=== PATIENT | male | born 1930 | race Caucasian/White ===

== ENCOUNTER 2017-07-29 03:45 | Inpatient (IN) | payer MEDICARE ==
[2017-07-29] VITALS (29 sets, daily range): BP systolic 115–141; BP diastolic 49–79; PULSE 62–144; RESP 15–31; TEMP 97.5–99.1; O2SAT 91–100
[~2017-07-29] VITALS: Ht 175.3 cm; Wt 84.3 kg
--- NOTE | 2017-07-29 03:52 | PD ---
HPI Chief Complaint: shortness of breath Time Seen by Provider: 03:48 Travel History International Travel<30 days: No Contact w/Intl Traveler<30days: No Traveled to known affect area: No History of Present Illness HPI 86-year-old male presents to the emergency department by EMS transport [facility] for complaint of shortness of breath. He should is recently transferred there reportedly 4 days ago from [facility] after hospitalization for pneumonia sepsis GERD hypertension syncope atrial fibrillation, dyslipidemia, BPH, COPD, CVA, non- Hodgkin's lymphoma laryngeal neoplasm weakness anxiety kidney failure discharged on BiPAP. Patient reportedly at [facility] was not tolerating BiPAP staff removed the IPAP machine and reportedly O2 saturations decreased to 70%. Patient is placed on 15 L per minute nonrebreather mask EMS was called and upon their arrival O2 saturations are 96% they tapered the supplemental oxygen on nonrebreather to 4 L/m nasal cannula O2 saturations reportedly remained 100% and patient was transferred to the emergency room. PFSH Past Medical History Narrative Medical pneumonia, sepsis, GERD, hypertension, syncope, atrial fibrillation, dyslipidemia, BPH, COPD, sleep apnea w/ BiPAP, CVA, CAD, CHF EF 25-30%, non- Hodgkin's lymphoma, laryngeal neoplasm, anxiety, chronic kidney disease, C Diff , mrsa,laryngeal biopsy, AAA, cardiac stent x 1 repair; no tobacco; nursing notes reviewed (PCP Gilma, Pulm: Dr Schafer/Matthew, Card: Dr Joe, Neph: Dr Ty ) Social History Tobacco Use: No Allergies-Medications (Allergen,Severity, Reaction): Coded Allergies: Iodinated Contrast- Oral and IV Dye (Verified Allergy, Unknown, 07/29/17) furosemide (Verified Allergy, Unknown, 07/29/17) hydrocodone (Verified Allergy, Unknown, 07/29/17) Reported Meds & Prescriptions Reported Meds & Active Scripts Active Reported Lunesta (Eszopiclone) 2 Mg Tab 3 Mg PO HS PRN Docusate Sodium 100 Mg Cap 100 Mg PO BID Diazepam 5 Mg Tab 5 Mg PO QID PRN Acetaminophen-Codeine 300-15 mg Tab 1 Tab PO Q6H PRN Questran (Cholestyramine) 4 Gm/Dose Powd 4 Gm PO QID 1 level scoopful of powder contains 4 grams of cholestyramine. Albuterol Neb (Albuterol Sulfate) 2.5 Mg/3 Ml Neb 2.5 Mg NEB QID NEB Pantoprazole (Pantoprazole Sodium) 40 Mg Tab 40 Mg PO BID Metoprolol Tartrate 25 Mg Tab 25 Mg PO BID Hydralazine HCl 25 Mg Tablet 50 Mg PO BID Ferrous Sulfate 325 Mg (65 Mg Iron) Tablet 325 Mg PO BIDPC Doxycycline Hyclate 100 Mg Cap 100 Mg PO BID Probiotic (Saccharomyces Boulardii) 250 Mg Cap 250 Mg PO BID Cetirizine (Cetirizine HCl) 10 Mg Tab 10 Mg PO BID Bumetanide 1 Mg Tab 1 Mg PO BID Symbicort Inh (Budesonide/Formoterol Fumarate) 160-4.5 Mcg/Act Aero 2 Puff INH Q12HR Tamsulosin (Tamsulosin HCl) 0.4 Mg Cap 0.4 Mg PO HS Simvastatin 20 Mg Tab 20 Mg PO HS Medrol (Methylprednisolone) 4 Mg Tab 4 Mg PO DAILY Magnesium Oxide 500 Mg Tab 500 Mg PO DAILY Losartan (Losartan Potassium) 25 Mg Tab 12.5 Mg PO DAILY Finasteride 5 Mg Tab 5 Mg PO DAILY Do not crush. Aspirin EC (Aspirin) 81 Mg Tabdr 81 Mg PO DAILY Narrative Medication Daily aspirin, finasteride, losartan, Medrol taper, simvastatin, Flomax, Bumex , cetirizine, doxycycline (07/24-07/29) iron sulfate, hydralazine, metoprolol, pantoprazole, oxygen 4 L/m nasal cannula Review of Systems Except as stated in HPI: all other systems reviewed are Neg General / Constitutional: No: Fever HENT: No: Congestion Cardiovascular: No: Chest Pain or Discomfort Respiratory: Positive: Shortness of Breath Gastrointestinal: No: Vomiting, Abdominal Pain Genitourinary: No: Dysuria, Flank Pain Musculoskeletal: No: Pain Skin: No Rash Neurologic: Positive: Weakness Psychiatric: No: Anxiety Hematologic/Lymphatic: No: Lymph Node Enlargement Physical Exam Narrative GENERAL: Well-developed well-nourished male in no acute distress mild respiratory distress with nonrebreather mask in place SKIN: Warm and dry. HEAD: Normocephalic. EYES: No scleral icterus. No injection or drainage. NECK: Supple, trachea midline. No JVD or lymphadenopathy. CARDIOVASCULAR: Regular rate and rhythm without murmurs, gallops, or rubs. RESPIRATORY: Breath sounds equal markedly diminished bilaterally. No accessory muscle use. GASTROINTESTINAL: Abdomen soft, non-tender, nondistended. MUSCULOSKELETAL: No cyanosis, or edema. BACK: Nontender without obvious deformity. No CVA tenderness. Data Data Last Documented VS Vital Signs Date Time Temp Pulse Resp B/P (MAP) Pulse Ox O2 Delivery O2 Flow Rate FiO2 07/29/17 05:15 94 40 07/29/17 05:01 88 18 116/59 (78) Nasal Cannula 3.00 07/29/17 04:08 99.1 Orders Orders Complete Blood Count With Diff (07/29/17 03:48) Comprehensive Metabolic Panel (07/29/17 03:48) B-Type Natriuretic Peptide (07/29/17 03:48) Act Partial Throm Time (Ptt) (07/29/17 03:48) Prothrombin Time / Inr (Pt) (07/29/17 03:48) Magnesium (Mg) (07/29/17 03:48) Ckmb (Isoenzyme) Profile (07/29/17 03:48) Troponin I (07/29/17 03:48) Urinalysis - C+S If Indicated (07/29/17 03:48) Iv Access Insert/Monitor (07/29/17 03:48) Electrocardiogram (07/29/17 03:48) Ecg Monitoring (07/29/17 03:48) Oximetry (07/29/17 03:48) Oxygen Administration (07/29/17 03:48) Chest, Single Ap (07/29/17 03:48) Sodium Chloride 0.9% Flush (Ns Flush) (07/29/17 04:00) Albuterol-Ipratropium Neb (Duoneb Neb) (07/29/17 04:00) Blood Culture (07/29/17 04:05) Lactic Acid Sepsis Protocol (07/29/17 04:05) Piperacil-Tazo 4.5 Gm Premix (Zosyn 4.5 (07/29/17 04:15) Albuterol-Ipratropium Neb (Duoneb Neb) (07/29/17 04:45) Methylprednisolone So Succ Inj (Solumedr (07/29/17 04:45) Protein Corrected Calcium(Pcc) (07/29/17 05:00) Aspirin Chew (Aspirin Chew) (07/29/17 05:30) Resp Bipap / Cpap Non Invas Vt (07/29/17 ) Non-Formulary Drug (07/29/17 05:45) Admit Order (Ed Use Only) (07/29/17 ) Pharmacy Clinical Coordinator / Telemetry [id number] (07/29/17 05:46) Diet Npo (07/29/17 Breakfast) Activity Bed Rest (07/29/17 05:46) Notify Dr: Other (07/29/17 05:46) Labs Laboratory Tests Test 07/29/17 04:00 White Blood Count 8.3 TH/MM3 Red Blood Count 3.01 MIL/MM3 Hemoglobin 9.1 GM/DL Hematocrit 28.9 % Mean Corpuscular Volume 96.1 FL Mean Corpuscular Hemoglobin 30.3 PG Mean Corpuscular Hemoglobin Concent 31.5 % Red Cell Distribution Width 22.5 % Platelet Count 240 TH/MM3 Mean Platelet Volume 6.9 FL Neutrophils (%) (Auto) 76.4 % Lymphocytes (%) (Auto) 13.9 % Monocytes (%) (Auto) 8.4 % Eosinophils (%) (Auto) 0.9 % Basophils (%) (Auto) 0.4 % Neutrophils # (Auto) 6.3 TH/MM3 Lymphocytes # (Auto) 1.2 TH/MM3 Monocytes # (Auto) 0.7 TH/MM3 Eosinophils # (Auto) 0.1 TH/MM3 Basophils # (Auto) 0.0 TH/MM3 CBC Comment DIFF FINAL Differential Comment Prothrombin Time 11.4 SEC Prothromb Time International Ratio 1.1 RATIO Activated Partial Thromboplast Time 21.2 SEC Blood Urea Nitrogen 20 MG/DL Creatinine 1.40 MG/DL Random Glucose 118 MG/DL Total Protein 6.3 GM/DL Albumin 2.9 GM/DL Calcium Level 8.1 MG/DL Magnesium Level 1.7 MG/DL Alkaline Phosphatase 74 U/L Aspartate Amino Transf (AST/SGOT) 11 U/L Alanine Aminotransferase (ALT/SGPT) 13 U/L Total Bilirubin 0.4 MG/DL Sodium Level 143 MEQ/L Potassium Level 3.9 MEQ/L Chloride Level 109 MEQ/L Carbon Dioxide Level 28.3 MEQ/L Anion Gap 6 MEQ/L Estimat Glomerular Filtration Rate 48 ML/MIN Lactic Acid Level 0.9 mmol/L Protein Corrected Calcium 8.5 MG/DL Total Creatine Kinase 14 U/L Troponin I 0.05 NG/ML B-Type Natriuretic Peptide 4598 PG/ML MDM Medical Decision Making Medical Screen Exam Complete: Yes Emergency Medical Condition: Yes Medical Record Reviewed: Yes Interpretation(s) EKG: Atrial fibrillation rate 80 lives axis deviation septal infarct age indeterminate lateral ST-T depression CXR: FINDINGS: Right IJ [id number] with tip in the proximal right atrium. Diffuse interstitial prominence with linear parenchymal opacities in the right lung base and mild air space disease in the left lung base. Cardiac fluid is mildly enlarged. Central pulmonary vascularity is indistinct. Osseous structures are intact. CONCLUSION: 1. Cardiomegaly with positive fluid balance. 2. Left lower lobe airspace disease which may reflect atelectasis although aspiration or pneumonia cannot be excluded in the appropriate clinical setting. 3. Right lower lobe atelectasis/scarring. Marko Khan MD on July 29, 2017 at 5:07 Board Certified Radiologist. This report was verified electronically. CBC & BMP Diagram 07/29/17 04:00 Total Protein 6.3 L, Albumin 2.9 L, Calcium Level 8.1 L, Magnesium Level 1.7, Alkaline Phosphatase 74, Aspartate Amino Transf (AST/SGOT) 11 L, Alanine Aminotransferase (ALT/SGPT) 13, Total Bilirubin 0.4 Vital Signs Date Time Temp Pulse Resp B/P (MAP) Pulse Ox O2 Delivery O2 Flow Rate FiO2 07/29/17 05:01 88 18 116/59 (78) 93 Nasal Cannula 3.00 07/29/17 04:45 95 Nasal Cannula 4.00 07/29/17 04:39 15 91 Nasal Cannula 3.00 07/29/17 04:39 Nasal Cannula 3.00 07/29/17 04:14 103 Non-Rebreather 15.00 07/29/17 04:09 100 Nasal Cannula 4.00 07/29/17 04:08 99.1 103 17 141/69 (93) 96 Troponin I: 0.05, upper limit normal range; BNP: 4598; CK: 14 lactic acid: 0.9, not elevated Differential Diagnosis Dyspnea, CHF, COPD, pneumonia, PE, ACS, [place], sepsis Narrative Course Patient placed on groundwater monitoring technician with continuous pulse oximetry IV access obtained via patient's PowerPort blood cultures obtained specimens collected and sent for resulting Patient administered 3 DuoNeb [facility] Solu-Medrol 100 mg administered EKG atrial fibrillation without ST elevation, ventricular rate controlled patient is identified to have mild ST segment depression laterally no prior EKGs available patient denies any chest pain shortness of breath has improved on supplemental oxygen according to patient @ 4:30 am patient's niece/POA, Reshma Hernandez, here to provide clarification of patient's past medical history as well as information she was provided by rehabilitation facility. Patient placed on BiPAP after gradual persistent desaturation on nasal cannula; chest x-ray shows vascular congestion failure left lower lobe infiltrate and BNP is elevated to 4598 patient does have chronic renal insufficiency also troponin I 0.05 Bumex 1 mg IV ordered; aspirin 162 mg times one dose ordered; patient denies any chest pain no nitroglycerin administered at this time. Patient and family aware of plan for admission call placed to admitting provider Sepsis Criteria SIRS Criteria (2 or more): Heart rate over 90 Physician Communication Physician Communication call placed to [facility] --> requests admit to [facility] ---> discussed with Dr Tidwell admit to their service Dr Garcia to see this AM Diagnosis Primary Impression: CHF (congestive heart failure) Additional Impressions: COPD exacerbation Pulmonary infiltrate in left lung on chest x-ray Admitting Information Admitting Physician Requests: Admit Jennifer Clarke MD Jul 29, 2017 03:52
[2017-07-29] MEDS: RESP: ALBUTEROL 2.5 MG/IPRATROPIUM 0.5 MG NEB (SCH) INH ×6 (03:56→19:22)
[2017-07-29] MEDS ORDERED: SODIUM CHLORIDE 0.9% FLUSH 10 ML FLUSH IVF PRN (04:00)
[2017-07-29] MEDS ORDERED: LORazepam 2 MG/ML VIAL IV PUSH ONE (04:00)
[2017-07-29] MEDS ORDERED: PIPERACIL-TAZO 4.5 GM PREMIX 100 ML IV ONE (04:15)
[2017-07-29 04:20] LABS: AUTOMATED NEUTROPHIL # 6.3 TH/MM3 (1.8-7.7); BASOPHIL % 0.4 % (0.0-2.0); EOSINOPHIL # 0.1 TH/MM3 (0-0.4); EOSINOPHIL % 0.9 % (0.0-4.0); HEMATOCRIT 28.9 % (39.0-51.0); HEMOGLOBIN 9.1 GM/DL (13.0-17.0); LYMPH % 13.9 % (9.0-44.0); LYMPHOCYTE # 1.2 TH/MM3 (1.0-4.8); MEAN CELL VOLUME 96.1 FL (80.0-100.0); MEAN CORPUSCULAR HEMOGLOBIN 30.3 PG (27.0-34.0); MEAN CORPUSCULAR HGB CONC 31.5 % (32.0-36.0); MEAN PLATELET VOLUME 6.9 FL (7.0-11.0); MONO % 8.4 % (0.0-8.0); MONOCYTE # 0.7 TH/MM3 (0-0.9); NEUT % 76.4 % (16.0-70.0); PLATELET COUNT 240 TH/MM3 (150-450); RED BLOOD COUNT 3.01 MIL/MM3 (4.50-5.90); RED CELL DISTRIBUTION WIDTH 22.5 % (11.6-17.2); WHITE BLOOD COUNT 8.3 TH/MM3 (4.0-11.0)
[2017-07-29 04:28] LABS: CHLORIDE 109 MEQ/L (98-107); SODIUM (NA) 143 MEQ/L (136-145)
[2017-07-29 04:31] LABS: ALBUMIN 2.9 GM/DL (3.4-5.0); BICARBONATE 28.3 MEQ/L (21.0-32.0); CALCIUM 8.1 MG/DL (8.5-10.1); GLUCOSE,RANDOM 118 MG/DL (74-106); MAGNESIUM 1.7 MG/DL (1.5-2.5)
[2017-07-29 04:32] LABS: BLOOD UREA NITROGEN 20 MG/DL (7-18); INTERNATIONAL NORMALIZED RATIO 1.1 RATIO; PROTHROMBIN TIME - PATIENT 11.4 SEC (9.8-11.6)
[2017-07-29 04:34] LABS: ALT (GPT) 13 U/L (12-78); AST (GOT) 11 U/L (15-37)
[2017-07-29 04:35] LABS: GLOMERULAR FILTRATION RATE 48 ML/MIN (>89)
[2017-07-29 04:36] LABS: TOTAL BILIRUBIN ADULT 0.4 MG/DL (0.2-1.0); TOTAL PROTEIN 6.3 GM/DL (6.4-8.2)
[2017-07-29 04:37] LABS: ALKALINE PHOSPHATASE 74 U/L (45-117)
[2017-07-29 04:40] LABS: TROPONIN I 0.05 NG/ML (0.02-0.05)
[2017-07-29] MEDS ORDERED: RESP: ALBUTEROL 2.5 MG/IPRATROPIUM 0.5 MG NEB (SCH) NEB ONE (04:45)
[2017-07-29] MEDS ORDERED: methylPREDNISolone SOD SUCC 125 MG/2 ML VIAL IV PUSH ONE (04:45)
[2017-07-29] MEDS ORDERED: NITROGLYCERIN 2% OINT 1 GM PACKET TOPICAL ONE (05:00)
--- NOTE | 2017-07-29 05:09 | RADRPT ---
EXAM DATE/TIME: 07/29/2017 04:38 [facility] COMPARISON: No previous studies available for comparison. INDICATIONS : Shortness of breath. MEDICAL HISTORY : None. SURGICAL HISTORY : None. ENCOUNTER: Initial ACUITY: 1 day PAIN SCORE: 0/10 LOCATION: Bilateral chest FINDINGS: Right IJ Tqlftw-[id number]-Gyja with tip in the proximal right atrium. Diffuse interstitial prominence with li near parenchymal opacities in the right lung base and mild air space disease in the left lung base. C ardiac fluid is mildly enlarged. Central pulmonary vascularity is indistinct. Osseous structures are intact. CONCLUSION: 1. Cardiomegaly with positive fluid balance. 2. Left lower lobe airspace disease which may reflect atelectasis although aspiration or pneumonia ca nnot be excluded in the appropriate clinical setting. 3. Right lower lobe atelectasis/scarring. Marko Khan MD on July 29, 2017 at 5:07 Board Certified Radiologist. This report was verified electronically.
[2017-07-29] MEDS ORDERED: BUME1TAB PO (05:15)
[2017-07-29] MEDS ORDERED: DIAZ5TAB PO (05:15)
[2017-07-29] MEDS ORDERED: ALBU0.08 NEB (05:15)
[2017-07-29] MEDS ORDERED: ESZO2 PO (05:15)
[2017-07-29] MEDS ORDERED: METO25TA3 PO (05:15)
[2017-07-29] MEDS ORDERED: CETI10 PO (05:15)
[2017-07-29] MEDS ORDERED: DOCU100C15 PO (05:15)
[2017-07-29] MEDS ORDERED: ACET300T49 PO (05:15)
[2017-07-29] MEDS ORDERED: FERR325T18 PO (05:15)
[2017-07-29] MEDS ORDERED: TAMS0.4C4 PO (05:15)
[2017-07-29] MEDS ORDERED: DOXY100C PO (05:15)
[2017-07-29] MEDS ORDERED: QUES4POW2 PO (05:15)
[2017-07-29] MEDS ORDERED: FINA5TAB2 PO (05:15)
[2017-07-29] MEDS ORDERED: ASPI81TA23 PO (05:15)
[2017-07-29] MEDS ORDERED: HYDR-3799 PO (05:15)
[2017-07-29] MEDS ORDERED: LOSA25TA PO (05:15)
[2017-07-29] MEDS ORDERED: MEDR4TAB PO (05:15)
[2017-07-29] MEDS ORDERED: PANT40TA3 PO (05:15)
[2017-07-29] MEDS ORDERED: SIMV20TA PO (05:15)
[2017-07-29] MEDS ORDERED: SACC1CAP3 PO (05:15)
[2017-07-29] MEDS ORDERED: SYMB160A INH (05:15)
[2017-07-29] MEDS ORDERED: MAGN500T2 PO (05:15)
[2017-07-29 05:29] LABS: CALCIUM 8.1 MG/DL (8.5-10.1)
[2017-07-29] MEDS ORDERED: ASPIRIN 81 MG CHEW TAB CHEW ONE (05:30)
[2017-07-29 05:36] LABS: CALCIUM-PROTEIN CORRECTED 8.5 MG/DL (8.5-10.1); TOTAL PROTEIN 6.4 GM/DL (6.4-8.2)
[2017-07-29] MEDS ORDERED: BUMETANIDE 1 MG/4 ML IV ONE (05:45)
[2017-07-29] MEDS ORDERED: VANCOMYCIN INJ 1,000 MG in SODIUM CHLOR 0.9% 250 ML INJ 250 ML IV ONE (06:15)
[2017-07-29 06:28] LABS: BILIRUBIN, URINE NEG (NEG); BLOOD, URINE NEG (NEG); GLUCOSE,URINE NEG (NEG); KETONE, URINE NEG (NEG); NITRITE,URINE NEG (NEG); PH, URINE 5.5 (5.0-8.5); URINE LEUKOCYTE ESTERASE NEG (NEG)
[2017-07-29 06:37] LABS: URINE COLOR YELLOW (YELLW/STRAW)
[2017-07-29 06:39] LABS: HYALINE CAST, URINE 0-2 /lpf (RARE)
[2017-07-29] MEDS ORDERED: MISCELLANEOUS NURSING INFORMATION XX SCH (07:00)
[2017-07-29] MEDS ORDERED: BISACODYL 10 MG SUPP RECTAL PRN (07:00)
[2017-07-29] MEDS ORDERED: FUROSEMIDE 40 MG/4 ML VIAL IV PUSH SCH (07:15)
[2017-07-29] MEDS ORDERED: LEVOFLOXACIN 750 MG PREMIX INJ 150 ML IV SCH (08:00)
[2017-07-29] MEDS ORDERED: RESP: ALBUTEROL 2.5 MG/IPRATROPIUM 0.5 MG NEB (PRN) INH (08:00)
[2017-07-29] MEDS: DOCUSATE SODIUM 50 MG/SENNA 8.6 MG TAB PO SCH ×2 (09:00→20:08)
[2017-07-29] MEDS ORDERED: MAGNESIUM HYDROXIDE SUSP 30 ML CUP PO PRN (09:00)
[2017-07-29] MEDS ORDERED: LACTULOSE SYRUP 20 GM/30 ML CUP PO PRN (09:00)
[2017-07-29] MEDS: BUDESONIDE-FORMOTEROL 160/4.5 MCG INHALER INH SCH ×2 (09:00→20:09)
[2017-07-29] MEDS ORDERED: SENNOSIDES 8.6 MG TAB PO PRN (09:00)
[2017-07-29] MEDS: cefTRIAXone INJ 1,000 MG in SODIUM CHLORIDE 0.9% INJ 100 ML IV SCH (09:40)
[2017-07-29] MEDS: FAMOTIDINE 20 MG/2 ML VIAL IV PUSH SCH ×2 (09:41→20:08)
[2017-07-29] MEDS: HEPARIN SODIUM - SQ 10,000 UNITS/ML VIAL SQ SCH ×2 (09:43→20:08)
[2017-07-29] MEDS: METOPROLOL TARTRATE 25 MG TAB PO SCH ×2 (09:44→20:06)
[2017-07-29] MEDS: FERROUS SULFATE 325 MG (65 MG ELEMENTAL IRON) TAB PO SCH ×2 (09:44→19:11)
[2017-07-29] MEDS: hydrALAZINE HCL 25 MG TAB PO SCH ×2 (09:45→20:06)
[2017-07-29] MEDS: ASPIRIN EC 81 MG TABEC PO SCH (09:46)
[2017-07-29] MEDS ORDERED: BUMEX IV SCH (12:00)
--- NOTE | 2017-07-29 12:35 | EKG ---
Date Performed: 07/29/2017 Time Performed: 04:38:54 PTAGE: 86 years EKG: Sinus rhythm WITH OCCASIONAL SUPRAVENTRICULAR PREMATURE COMPLEXES MARKED LEFT AXIS DEVIATION SEPTAL MYOCARDIAL IN FARCTION MODERATE T-WAVE ABNORMALITY, CONSIDER ANTEROLATERAL ISCHEMIA ABNORMAL ECG NO PREVIOUS TRACING DOCTOR: Michael Conn Interpretating Date/Time 07/29/2017 12:33:47
--- NOTE | 2017-07-29 12:51 | HHI.HP ---
[facility] Critical Care Medicine Primary Care Physician Matilde Dillard M.D. Admission Diagnosis chf, copd, LLL infiltrate Diagnosis: (1) Acute and chronic respiratory failure with hypoxia Diagnosis: Principal (2) Acute on chronic systolic congestive heart failure Diagnosis: Principal (3) Chronic obstructive pulmonary disease Diagnosis: Principal (4) Abnormal chest x-ray Diagnosis: Principal (5) Diarrhea Diagnosis: Principal (6) History of Clostridium difficile infection Diagnosis: Secondary (7) Chronic kidney disease Diagnosis: Secondary (8) Atrial fibrillation Diagnosis: Secondary Travel History International Travel<30 Days: No Contact w/Intl Traveler <30 Da: No Traveled to Known Affected Are: No History of Present Illness 86 year-old male who is a no code DNR who presented from local nursing facility [facility] and rehabilitation for evaluation of hypoxia and shortness of breath. Patient with rather significant medical history of chronic hypoxic respiratory failure, chronic systolic congestive heart failure, chronic obstructive pulmonary disease, sleep apnea, hypertension , hyperlipidemia, coronary artery disease, non-Hodgkin lymphoma, laryngeal neoplasm, atrial fibrillation, chronic kidney disease who was recently hospitalized at [facility] to be for recurrent pneumonia and Clostridium difficile infection. Patient was discharged with respiratory failure on BiPAP to [facility]. Apparently the senior care stated that he was not tolerating BiPAP been removed and he decreased to 70% O2 saturations. He is placed on 15 L nonrebreather and transferred to the hospital for further evaluation. Workup in emergency department initially indicated that he has chronic respiratory failure. Chest x-ray was rather inconclusive of whether it is atelectasis, scarring, fluid, pneumonia, aspiration. Because the patient was in respiratory failure he was started on BiPAP for respiratory support. Patient tolerated BiPAP fine in emergency department in O2 saturations improved. Information was taken from power of fresco artist at bedside Reshma Hager. She indicates that he has had recent treatment for Clostridium difficile and still has diarrhea at this time. She thinks he may still be getting treatment in the senior care. Patient was admitted to the ICU in critical care management. [place] DNR was presented at time of transfer from ER to ICU. Review of Systems Respiratory: COMPLAINS OF: Shortness of breath Gastrointestinal: COMPLAINS OF: Diarrhea Past Family Social History Allergies: Coded Allergies: Iodinated Contrast- Oral and IV Dye (Verified Allergy, Unknown, 07/29/17) furosemide (Verified Allergy, Unknown, 07/29/17) hydrocodone (Verified Allergy, Unknown, 07/29/17) Past Medical History Unable to obtain information from the patient. 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% Chronic hypoxic respiratory failure Chronic obstructive pulmonary disease Sleep apnea with BiPAP History of non-Hodgkin lymphoma Laryngeal neoplasm Chronic kidney disease History of CVA Gastroesophageal reflux History of diverticulitis Past Surgical History Cardiac catheterization with stenting Cataract surgery Hernia repair Mediport placement Reported Medications Reported Meds & Active Scripts Active Reported Lunesta (Eszopiclone) 2 Mg Tab 3 Mg PO HS PRN Docusate Sodium 100 Mg Cap 100 Mg PO BID Diazepam 5 Mg Tab 5 Mg PO QID PRN Acetaminophen-Codeine 300-15 mg Tab 1 Tab PO Q6H PRN Questran (Cholestyramine) 4 Gm/Dose Powd 4 Gm PO QID 1 level scoopful of powder contains 4 grams of cholestyramine. Albuterol Neb (Albuterol Sulfate) 2.5 Mg/3 Ml Neb 2.5 Mg NEB QID NEB Pantoprazole (Pantoprazole Sodium) 40 Mg Tab 40 Mg PO BID Metoprolol Tartrate 25 Mg Tab 25 Mg PO BID Hydralazine HCl 25 Mg Tablet 50 Mg PO BID Ferrous Sulfate 325 Mg (65 Mg Iron) Tablet 325 Mg PO BIDPC Doxycycline Hyclate 100 Mg Cap 100 Mg PO BID Probiotic (Saccharomyces Boulardii) 250 Mg Cap 250 Mg PO BID Cetirizine (Cetirizine HCl) 10 Mg Tab 10 Mg PO BID Bumetanide 1 Mg Tab 1 Mg PO BID Symbicort Inh (Budesonide/Formoterol Fumarate) 160-4.5 Mcg/Act Aero 2 Puff INH Q12HR Tamsulosin (Tamsulosin HCl) 0.4 Mg Cap 0.4 Mg PO HS Simvastatin 20 Mg Tab 20 Mg PO HS Medrol (Methylprednisolone) 4 Mg Tab 4 Mg PO DAILY Magnesium Oxide 500 Mg Tab 500 Mg PO DAILY Losartan (Losartan Potassium) 25 Mg Tab 12.5 Mg PO DAILY Finasteride 5 Mg Tab 5 Mg PO DAILY Do not crush. Aspirin EC (Aspirin) 81 Mg Tabdr 81 Mg PO DAILY Physical Exam Vital Signs Vital Signs Date Time Temp Pulse Resp B/P (MAP) Pulse Ox O2 Delivery O2 Flow Rate FiO2 07/29/17 11:23 99 35 07/29/17 11:00 74 19 140/64 (89) 99 07/29/17 11:00 74 07/29/17 10:00 62 15 130/67 (88) 98 07/29/17 10:00 62 07/29/17 09:00 68 07/29/17 09:00 68 18 133/59 (83) 97 07/29/17 08:15 99 35 07/29/17 08:02 98.0 72 18 133/63 (86) 98 07/29/17 08:00 72 07/29/17 07:42 07/29/17 07:00 70 18 137/58 (84) 100 BiPAP 07/29/17 05:56 78 18 126/61 (82) 99 BiPAP 07/29/17 05:15 94 40 07/29/17 05:01 88 18 116/59 (78) 93 Nasal Cannula 3.00 07/29/17 04:45 95 Nasal Cannula 4.00 07/29/17 04:39 15 91 Nasal Cannula 3.00 07/29/17 04:39 Nasal Cannula 3.00 07/29/17 04:14 103 Non-Rebreather 15.00 07/29/17 04:09 100 Nasal Cannula 4.00 07/29/17 04:08 99.1 103 17 141/69 (93) 96 Physical Exam GENERAL: Well-developed, well-nourished, in respiratory insufficiency. alert HEENT: Head is normocephalic without any lesions or masses noted. Facial features are symmetric. Eyes: Pupils equal round reactive to light. Extraocular muscles are intact. Conjunctivae were clear. Patient wearing BiPAP mask NECK: Supple without any masses. Trachea midline no deviation. No JVD, no bruits are appreciated CARDIAC: Regular rhythm, regular rate. S1/S2 are heard. No murmurs gallops or rubs. LUNGS: Severely diminished breath sounds. Mild wheezing crackles after nebulizer treatment. No use of accessory muscles on inspiration or expiration. ABDOMEN: Soft, nontender. Nondistended. Bowel sounds heard in all 4 quadrants. No organomegaly or masses. Negative rebound, negative guarding EXTREMITIES: No edema, pulses are equal bilaterally. No cyanosis or clubbing NEUROLOGY: Mood and affect appear appropriate. Cranial nerves II through XII grossly intact. Moving all extremities, Laboratory Laboratory Tests Test 07/29/17 04:00 07/29/17 06:21 White Blood Count 8.3 Red Blood Count 3.01 Hemoglobin 9.1 Hematocrit 28.9 Mean Corpuscular Volume 96.1 Mean Corpuscular Hemoglobin 30.3 Mean Corpuscular Hemoglobin Concent 31.5 Red Cell Distribution Width 22.5 Platelet Count 240 Mean Platelet Volume 6.9 Neutrophils (%) (Auto) 76.4 Lymphocytes (%) (Auto) 13.9 Monocytes (%) (Auto) 8.4 Eosinophils (%) (Auto) 0.9 Basophils (%) (Auto) 0.4 Neutrophils # (Auto) 6.3 Lymphocytes # (Auto) 1.2 Monocytes # (Auto) 0.7 Eosinophils # (Auto) 0.1 Basophils # (Auto) 0.0 CBC Comment DIFF FINAL Differential Comment Prothrombin Time 11.4 Prothromb Time International Ratio 1.1 Activated Partial Thromboplast Time 21.2 Blood Urea Nitrogen 20 Creatinine 1.40 Random Glucose 118 Total Protein 6.3 Albumin 2.9 Calcium Level 8.1 Magnesium Level 1.7 Alkaline Phosphatase 74 Aspartate Amino Transf (AST/SGOT) 11 Alanine Aminotransferase (ALT/SGPT) 13 Total Bilirubin 0.4 Sodium Level 143 Potassium Level 3.9 Chloride Level 109 Carbon Dioxide Level 28.3 Anion Gap 6 Estimat Glomerular Filtration Rate 48 Lactic Acid Level 0.9 Protein Corrected Calcium 8.5 Total Creatine Kinase 14 Troponin I 0.05 B-Type Natriuretic Peptide 4598 Urine Collection Type CLEAN CATCH Urine Color YELLOW Urine Turbidity CLEAR Urine pH 5.5 Urine Specific [place] 1.012 Urine Protein 100 Urine Glucose (UA) NEG Urine Ketones NEG Urine Occult Blood NEG Urine Nitrite NEG Urine Bilirubin NEG Urine Leukocyte Esterase NEG Urine Hyaline Casts 0-2 Microscopic Urinalysis Comment CULT NOT INDICATED Date/Time Source Procedure Growth Status 07/29/17 04:05 Blood Peripheral Aerobic Blood Culture Pending Received 07/29/17 04:05 Blood Peripheral Anaerobic Blood Culture Pending Received Result Diagram: 07/29/170 07/29/17399 Imaging Last Impressions Chest X-Ray 07/29/17 0348 Signed Impressions: Service Date/Time: Saturday, July 29, 2017 04:38 - CONCLUSION: 1. Cardiomegaly with positive fluid balance. 2. Left lower lobe airspace disease which may reflect atelectasis although aspiration or pneumonia cannot be excluded in the appropriate clinical setting. 3. Right lower lobe atelectasis/scarring. Marko Khan MD Septic Shock Reassessment Septic shock perfusion: reassessment completed Caprini VTE Risk Assessment Caprini VTE Risk Assessment: Mod/High Risk (score >= 2) Caprini Risk Assessment Model Point Value = 1 Point Value = 2 Point Value = 3 Point Value = 5 Age 41-60 Minor surgery BMI > 25 kg/m2 Swollen legs Varicose veins or History of unexplained or recurrent spontaneous Oral contraceptives or hormone replacement Sepsis (< 1 month) Serious lung disease, including pneumonia (< 1 month) Abnormal pulmonary function Acute myocardial infarction Congestive heart failure (< 1 month) History of inflammatory bowel disease Medical patient at bed rest Age 61-74 Arthroscopic surgery Major open surgery (> 45 min) Laparoscopic surgery (> 45 min) Malignancy Confined to bed (> 72 hours) Immobilizing plaster cast Central venous access Age >= 75 History of VTE Family history of VTE Factor V Leiden Prothrombin [id number] Lupus anticoagulant Anticardiolipin antibodies Elevated serum homocysteine Heparin-induced thrombocytopenia Other congenital or acquired thrombophilia Stroke (< 1 month) Elective arthroplasty Hip, pelvis, or leg fracture Acute spinal cord injury (< 1 month) Prophylaxis Regimen Total Risk Factor Score Risk Level Prophylaxis Regimen 0-1 Low Early ambulation 2 Moderate Order ONE of the following: *Sequential Compression Device (SCD) *Heparin 5000 units SQ BID 3-4 Higher Order ONE of the following medications: *Heparin 5000 units SQ TID *Enoxaparin/Lovenox 40 mg SQ daily (WT < 150 kg, CrCl > 30 mL/min) *Enoxaparin/Lovenox 30 mg SQ daily (WT < 150 kg, CrCl > 10-29 mL/min) *Enoxaparin/Lovenox 30 mg SQ BID (WT < 150 kg, CrCl > 30 mL/min) AND/OR *Sequential Compression Device (SCD) 5 or more Highest Order ONE of the following medications: *Heparin 5000 units SQ TID (Preferred with Epidurals) *Enoxaparin/Lovenox 40 mg SQ daily (WT < 150 kg, CrCl > 30 mL/min) *Enoxaparin/Lovenox 30 mg SQ daily (WT < 150 kg, CrCl > 10-29 mL/min) *Enoxaparin/Lovenox 30 mg SQ BID (WT < 150 kg, CrCl > 30 mL/min) AND *Sequential Compression Device (SCD) Assessment and Plan Problem List: (1) Acute and chronic respiratory failure with hypoxia ICD Code: J96.21 - Acute and chronic respiratory failure with hypoxia (2) Acute on chronic systolic congestive heart failure ICD Code: I50.23 - Acute on chronic systolic (congestive) heart failure (3) Chronic obstructive pulmonary disease ICD Code: J44.9 - Chronic obstructive pulmonary disease, unspecified (4) Abnormal chest x-ray ICD Code: R93.8 - Abnormal findings on diagnostic imaging of other specified body structures (5) Diarrhea ICD Code: R19.7 - Diarrhea, unspecified (6) History of Clostridium difficile infection ICD Code: Z86.19 - Personal history of other infectious and parasitic diseases (7) Chronic kidney disease ICD Code: N18.9 - Chronic kidney disease, unspecified (8) Atrial fibrillation ICD Code: I48.91 - Unspecified atrial fibrillation Assessment and Plan NEUROLOGY Stable this time Continue monitor neurological function per ICU protocol Avoid sedative medication PULMONARY Acute on chronic hypoxic respiratory failure Chronic obstructive pulmonary disease Continue with oxygen keep sat >92% Patient currently on BiPAP at this time 12/5/40%, Duo nebs every 4 hours and every 2 hours Symbicort twice daily Solu-Medrol 40 mg IV every 8 hours CARDIOLOGY Acute on chronic systolic congestive heart failure Cardiomyopathy with ejection 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% Coronary artery disease, hypertension, hyperlipidemia Patient is allergic to Lasix, will discuss with pharmacy and start Bumex 1 mg IV daily Strict input and output, with daily weights Continue beta matthew, did not start MARY CARMEN/ARB secondary to kidney disease Obtain echocardiogram GASTROENTEROLOGY Nothing by mouth at this time, when patient more approval start healthy heart diet Pepcid for GI protection Bowel regimen started NEPHROLOGY Chronic kidney disease, unknown what stage Continue monitor renal function Avoid nephrotoxins Replace electrolytes as needed INFECTIOUS DISEASE Diarrhea illness with history of clostridium difficile Chest x-ray with possible pneumonia Patient was given vancomycin/Zosyn in emergency department. Continue Rocephin at this time Further antibiotic decision made after cultures had been ascertained Blood cultures are pending, Awaiting sputum culture, C. difficile testing Obtain pneumococcal, Legionella testing HEMATOLOGY History of iron deficiency anemia Resume replacement Monitor CBC ENDOCRINOLOGY SSI with accucheks for glycemic control as patient is on IV steroids PROPHYLAXIS DVT prevention with subcutaneous heparin GI protection with Pepcid IV LINES Peripheral IVs CODE STATUS No code Addendum: Patient is seen and examined agree with above assessment and plan. Discussed with patient;s niece Reshma Kimon who is POA and she confirmed patient is no code DNR. Per patients's wishes he does not want any intubation or cardiac resuscitation in event of cardiopulmonary arrest. Will sign off and transfer care to [facility]. Code Status DO NOT RESUSCITATE Discussed Condition With Nursing staff, ER physician, discussed with Reshma Hager, power of fresco artist at bedside Aydin Cho Jul 29, 2017 12:51 Kike Rivas MD Jul 29, 2017 14:55
[2017-07-29] MEDS: methylPREDNISolone SOD SUCC 40 MG/1 ML VIAL IV PUSH SCH ×2 (12:55→20:26)
--- NOTE | 2017-07-29 16:42 | MB ---
cc: ROSANNE SHELLEY MD DATE OF CONSULTATION 07/29/17 REASON FOR CONSULTATION Congestive heart failure HISTORY OF PRESENT ILLNESS The patient is a very pleasant 86-hour gentleman who sees my colleague, Dr. Broussard, (She asked me to follow this patient while I was down here) who presented by ambulance to the [facility] in clinical congestive heart failure. Apparently, the patient had a lengthy hospitalization for pneumonia and was only home about a week when he represented with shortness of breath and hypoxia. He was given Bumex and then admitted to [facility] where he has stabilized and is now quite comfortable on a nasal cannula. His shortness of breath is apparently near baseline. He denies any other symptoms such as chest pain, lightheadedness, dizziness or syncope. PAST MEDICAL HISTORY 1. COPD, 2. CHF, 3. Cardiomyopathy, 4. Hypertension, 5. Hyperlipidemia, 6. Coronary artery disease 7. Non-Hodgkin's lymphoma 8. Atrial fibrillation, 9. Chronic kidney disease, 10. Pneumonia. MEDICATIONS Current, 1. Flomax 0.4 mg q.h.s. 2. Pravachol 40 mg daily. 3. Pepcid 4. Subcu Heparin. 5. Aspirin 81 mg daily. 6. Symbicort 7. Iron 8. Hydralazine 50 mg b.i.d. 9. Lopressor 25 mg b.i.d. 10. Ceftriaxone. ALLERGIES FUROSEMIDE HYDROCODONE ___ CONTRAST (the patient says he tolerates Bumex). PHYSICAL EXAMINATION VITAL SIGNS: Afebrile, pulse 62, respiratory rate 18, BP 132/62 satting 94 three liters. GENERAL: A pleasant 86 year old gentleman in no distress. NECK: Notable JVP. LUNGS: Decreased breath sounds with wheezing in all soto. CARDIOVASCULAR: Regular rate and rhythm with occasional ectopy. No significant murmurs appreciated. ABDOMEN: Benign. EXTREMITIES: Trace edema. LABORATORY DATA White count 8.3, hematocrit 28.9, platelets 240. Sodium 43, potassium 2.9, chloride 109, bicarb 28.3, BUN 20, creatinine 1.4, glucose 118, troponin negative x1. BNP is 4598. CARDIOLOGY STUDIES EKG shows sinus rhythm with occasional PACs with ST changes consistent with ischemia. IMAGING STUDIES Chest x-ray shows cardiomegaly with CHF and possible pneumonia. IMPRESSION 1. Acute on chronic respiratory failure. Patient with a combination of COPD, CHF and pneumonia presents again with respiratory failure with similar pulmonary issues as he had during his recent hospitalization. He is already on IV Bumex and doing well. I will be slightly more aggressive and increase his Bumex to b.i.d. Otherwise, his COPD and pneumonia are being treated by the medical team. The patient has been well worked up during his recent hospitalizations according to and he is a Do Not Resuscitate patient, so at this time I do not believe he requires a new ischemic workup or consideration for a defibrillator. Further recommendations will be based on his clinical course and hopefully he can be compensated quickly so he can return home. Thank you again for the opportunity to participate in this patient's care. MD LIANNE Guzmán/ /4:06 PM /4:27 PM
[2017-07-29] MEDS: PRAVASTATIN SOD 40 MG TAB PO SCH (20:06)
[2017-07-29] MEDS: TAMSULOSIN HCL 0.4 MG CAP PO SCH (20:06)
[2017-07-29] MEDS: BUMEX 1 MG IV SCH (20:27)
[2017-07-29] MEDS: ESZOPICLONE 3 MG TAB PO PRN (21:26)
[2017-07-30] VITALS (28 sets, daily range): BP systolic 100–136; BP diastolic 52–75; PULSE 62–98; RESP 13–33; TEMP 97.6–98.4; O2SAT 94–100
[2017-07-30] MEDS: methylPREDNISolone SOD SUCC 40 MG/1 ML VIAL IV PUSH SCH ×3 (05:13→22:12)
[2017-07-30 06:24] LABS: AUTOMATED NEUTROPHIL # 3.9 TH/MM3 (1.8-7.7); HEMOGLOBIN 8.4 GM/DL (13.0-17.0); LYMPH % 15.3 % (9.0-44.0); LYMPHOCYTE # 0.8 TH/MM3 (1.0-4.8); MEAN CELL VOLUME 95.6 FL (80.0-100.0); MEAN CORPUSCULAR HEMOGLOBIN 30.9 PG (27.0-34.0); MEAN CORPUSCULAR HGB CONC 32.3 % (32.0-36.0); MEAN PLATELET VOLUME 7.2 FL (7.0-11.0); MONO % 6.4 % (0.0-8.0); MONOCYTE # 0.3 TH/MM3 (0-0.9); NEUT % 78.3 % (16.0-70.0); PLATELET COUNT 214 TH/MM3 (150-450); RED BLOOD COUNT 2.72 MIL/MM3 (4.50-5.90); RED CELL DISTRIBUTION WIDTH 21.7 % (11.6-17.2)
[2017-07-30 06:33] LABS: CHLORIDE 109 MEQ/L (98-107); SODIUM (NA) 145 MEQ/L (136-145)
[2017-07-30 06:39] LABS: CALCIUM 8.1 MG/DL (8.5-10.1)
[2017-07-30 06:40] LABS: ALBUMIN 2.6 GM/DL (3.4-5.0); BICARBONATE 29.7 MEQ/L (21.0-32.0); BLOOD UREA NITROGEN 26 MG/DL (7-18); GLUCOSE,RANDOM 141 MG/DL (74-106)
[2017-07-30 06:42] LABS: ALT (GPT) 13 U/L (12-78); AST (GOT) 10 U/L (15-37)
[2017-07-30 06:43] LABS: GLOMERULAR FILTRATION RATE 41 ML/MIN (>89)
[2017-07-30 06:44] LABS: TOTAL BILIRUBIN ADULT 0.4 MG/DL (0.2-1.0); TOTAL PROTEIN 5.9 GM/DL (6.4-8.2)
[2017-07-30 06:45] LABS: ALKALINE PHOSPHATASE 63 U/L (45-117)
[2017-07-30] MEDS: RESP: ALBUTEROL 2.5 MG/IPRATROPIUM 0.5 MG NEB (SCH) INH ×4 (07:36→19:47)
[2017-07-30] MEDS: HEPARIN SODIUM - SQ 10,000 UNITS/ML VIAL SQ SCH ×2 (08:02→19:34)
[2017-07-30] MEDS: cefTRIAXone INJ 1,000 MG in SODIUM CHLORIDE 0.9% INJ 100 ML IV SCH (08:02)
[2017-07-30] MEDS: FAMOTIDINE 20 MG/2 ML VIAL IV PUSH SCH ×2 (08:03→19:32)
[2017-07-30] MEDS: hydrALAZINE HCL 25 MG TAB PO SCH ×2 (08:05→19:33)
[2017-07-30] MEDS: BUDESONIDE-FORMOTEROL 160/4.5 MCG INHALER INH SCH ×2 (08:05→19:32)
[2017-07-30] MEDS: METOPROLOL TARTRATE 25 MG TAB PO SCH ×2 (08:05→19:33)
[2017-07-30] MEDS: FERROUS SULFATE 325 MG (65 MG ELEMENTAL IRON) TAB PO SCH ×2 (08:05→17:56)
[2017-07-30] MEDS: ASPIRIN EC 81 MG TABEC PO SCH (08:05)
--- NOTE | 2017-07-30 08:59 | RADRPT ---
EXAM DATE/TIME: 07/30/2017 08:44 [place] COMPARISON: CHEST SINGLE AP, July 29, 2017, 4:38. INDICATIONS : Short of breath MEDICAL HISTORY : None. SURGICAL HISTORY : None. ENCOUNTER: Subsequent ACUITY: 2 days PAIN SCORE: 0/10 LOCATION: Bilateral chest FINDINGS: Right IJ [id number] is present with tip overlapping the expected region of the SVC. Cardiomegaly h as not changed. Scattered parenchymal infiltrates are seen bilaterally not significantly changed exce pt for improvement in aeration of the right lower lobe since the prior exam. Left lung base opacity s een could be technical, however consolidation in this area is not excluded. CONCLUSION: Improvement in aeration of right lower lobe. George Sawyer MD on July 30, 2017 at 8:56 Board Certified Radiologist. This report was verified electronically.
[2017-07-30] MEDS: DOCUSATE SODIUM 50 MG/SENNA 8.6 MG TAB PO SCH ×2 (09:00→19:34)
[2017-07-30] MEDS: BUMEX 1 MG IV SCH (09:00)
[2017-07-30] MEDS: FINASTERIDE 5 MG TAB PO SCH (09:19)
[2017-07-30] MEDS: DIAZEPAM 5 MG TAB PO PRN (09:19)
--- NOTE | 2017-07-30 10:41 | HHI.PR ---
Subjective Remarks 86 year-old male with rather extensive medical history who was seen by myself yesterday for critical care management. Patient is a no code DNR and was admitted on BiPAP for respiratory support. Patient clinically stabilized and was transferred to medical service. Patient is doing well this morning. He is very anxious and wants to go home today. He has been weaned down to 3 L nasal cannula and only went on his CPAP last evening. Patient states that he does not want to go back to a nursing facility. Awaiting physical therapy evaluation to determine discharge disposition. Patient appears to be at his baseline at this time. Objective Vital Signs Date Time Temp Pulse Resp B/P (MAP) Pulse Ox O2 Delivery O2 Flow Rate FiO2 07/30/17 10:00 74 07/30/17 10:00 74 15 113/52 (72) 100 07/30/17 09:00 92 26 117/66 (83) 99 07/30/17 08:00 94 33 136/75 (95) 97 07/30/17 08:00 94 07/30/17 07:39 98 Nasal Cannula 3.00 07/30/17 07:00 97.9 70 14 131/58 (82) 100 07/30/17 06:00 64 07/30/17 06:00 64 15 129/68 (88) 99 07/30/17 05:00 78 16 132/75 (94) 99 07/30/17 04:00 97.6 68 16 122/67 (85) 100 07/30/17 04:00 100 35 07/30/17 04:00 68 07/30/17 03:00 72 15 128/64 (85) 100 07/30/17 02:00 62 14 124/58 (80) 99 07/30/17 02:00 68 07/30/17 01:15 100 35 07/30/17 01:00 66 13 127/63 (84) 100 07/30/17 00:00 98.2 68 17 127/58 (81) 100 07/30/17 00:00 62 07/29/17 23:00 84 18 124/65 (84) 99 07/29/17 22:00 82 23 120/55 (76) 97 07/29/17 22:00 82 07/29/17 22:00 98 35 07/29/17 21:00 96 27 129/59 (82) 97 07/29/17 20:00 95 07/29/17 20:00 97.9 94 23 131/61 (84) 96 07/29/17 19:24 97 Nasal Cannula 3.00 07/29/17 19:00 98 26 115/62 (79) 07/29/17 19:00 98 07/29/17 18:00 144 31 138/79 (98) 07/29/17 18:00 144 07/29/17 17:00 86 22 140/59 (86) 96 07/29/17 17:00 86 07/29/17 16:00 82 07/29/17 16:00 97.7 82 21 117/49 (71) 07/29/17 15:26 94 Nasal Cannula 3.00 07/29/17 15:00 80 07/29/17 15:00 80 22 130/56 (80) 93 07/29/17 14:00 64 07/29/17 14:00 64 19 127/64 (85) 99 07/29/17 13:00 62 18 132/62 (85) 100 07/29/17 13:00 62 07/29/17 12:00 97.5 66 19 138/72 (94) 100 07/29/17 12:00 66 07/29/17 11:23 99 35 07/29/17 11:00 74 19 140/64 (89) 99 07/29/17 11:00 74 I/O 07/29/17 07/29/17 07/29/17 07/30/17 07/30/17 07/30/17 07:00 15:00 23:00 07:00 15:00 23:00 Intake Total 100 ml 350 ml 480 ml Output Total 400 ml Balance 100 ml -50 ml 480 ml Intake Oral 480 ml IV Total 100 ml 350 ml Output Urine Total 400 ml # Voids 3 4 # Bowel Movements 2 2 1 Result Diagram: 07/30/17 0545 07/30/17 0545 Imaging Last Impressions Chest X-Ray 07/30/17 0000 Signed Impressions: Service Date/Time: Sunday, July 30, 2017 08:44 - CONCLUSION: Improvement in aeration of right lower lobe. KGiovani Sawyer MD Objective Remarks GENERAL: Well-developed, well-nourished, in no acute distress. alert and orientated HEENT: Head is normocephalic without any lesions or masses noted. Facial features are symmetric. Eyes: Extraocular muscles are intact. Conjunctivae were clear. NECK: Supple without any masses. Trachea midline no deviation. No JVD, CARDIAC: Regular rhythm, regular rate. S1/S2 are heard. No murmurs gallops or rubs. LUNGS: Mild expiratory wheeze, no rhonchi or rales. No use of accessory muscles on inspiration or expiration. ABDOMEN: Soft, nontender. Nondistended. Bowel sounds heard in all 4 quadrants. No organomegaly or masses. Negative rebound, negative guarding EXTREMITIES: No edema, pulses are equal bilaterally. No cyanosis or clubbing NEUROLOGY: Mood and affect appear appropriate. Cranial nerves II through XII grossly intact. 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 difficile culture is negative Rotavirus antigen is negative History of iron deficiency anemia Resume replacement Monitor CBC PROPHYLAXIS DVT prevention with subcutaneous heparin GI protection with Pepcid IV, changed to Pepcid by mouth CODE STATUS No code Discharge Planning Discharge disposition, patient wants to go home today. Awaiting echocardiogram , physical therapy evaluation. With those have been performed and resulted, anticipate discharge planning Aydin Cho Jul 30, 2017 10:41
--- NOTE | 2017-07-30 16:41 | ECHRPT ---
Indication: CONCLUSIONS The left ventricular systolic function is severely reduced with an estimated ejection fraction in th e range of 30-35%. Normal left ventricular size. Mild concentric left ventricular hypertrophy. There is global left ventricular dysfunction. The left atrial size is mildly dilated. Moderate mitral valve regurgitation. Mild thickening of the aortic valve leaflets. Mild - moderate aortic valve regurgitation. There is mild tricuspid valve regurgitation. The estimated pulmonary arterial pressure is 56.8 mmHg. BP: / HR: Rhythm: MEASUREMENTS (Male / Female) Normal Values Technical Quality: 2D ECHO LV Diastolic Diameter PLAX 6.1 cm 4.2 - 5.9 / 3.9 - 5.3 cm LV Systolic Diameter PLAX 5.2 cm IVS Diastolic Thickness 1.1 cm 0.6 - 1.0 / 0.6 - 0.9 cm LVPW Diastolic Thickness 1.1 cm 0.6 - 1.0 / 0.6 - 0.9 cm LV Relative Wall Thickness 0.4 RV Internal Dim ED PLAX 3.8 cm LVOT Diameter 2.2 cm LA Systolic Diameter LX 4.9 cm 3.0 - 4.0 / 2.7 - 3.8 cm LV Ejection Fraction MOD 4C 31.9 % LV Ejection Fraction 4C AL 32.7 % M-MODE Aortic Root Diameter MM 4.2 cm LA Systolic Diameter MM 5.3 cm LA Ao Ratio MM 1.3 AV Cusp Separation MM 2.3 cm DOPPLER AV Peak Velocity 103.0 cm/s AV Peak Gradient 4.2 mmHg AI Peak Velocity 274.5 cm/s AI Peak Gradient 30.1 mmHg AI Pressure Half Time 416.5 ms LVOT Peak Velocity 80.9 cm/s LVOT Peak Gradient 2.6 mmHg AV Area Cont Eq pk 3.0 cm MV Area PHT 4.6 cm Mitral E Point Velocity 118.0 cm/s Mitral A Point Velocity 82.9 cm/s Mitral E to A Ratio 1.4 LV E' Lateral Velocity 6.2 cm/s Mitral E to LV E' Lateral Ratio 18.9 LV E' Septal Velocity 3.1 cm/s Mitral E to LV E' Septal Ratio 37.8 TR Peak Velocity 342.0 cm/s TR Peak Gradient 46.8 mmHg Right Atrial Pressure 10.0 mmHg Pulmonary Artery Systolic Pressu 56.8 mmHg Right Ventricular Systolic Press 56.8 mmHg PV Peak Velocity 90.9 cm/s PV Peak Gradient 3.3 mmHg FINDINGS LEFT VENTRICLE The left ventricular systolic function is severely reduced with an estimated ejection fraction in th e range of 30-35%. Normal left ventricular size. Mild concentric left ventricular hypertrophy. There is global left ventricular dysfunction. RIGHT VENTRICLE Normal right ventricular size and systolic function. LEFT ATRIUM The left atrial size is mildly dilated. RIGHT ATRIUM The right atrial size is normal. ATRIAL SEPTUM Normal atrial septal thickness without atrial level shunting by limited color doppler interrogation. AORTA The aortic root and proximal ascending aorta are normal in size on limited imaging. MITRAL VALVE Moderate mitral valve regurgitation. AORTIC VALVE Mild thickening of the aortic valve leaflets. Mild - moderate aortic valve regurgitation. TRICUSPID VALVE There is mild tricuspid valve regurgitation. The estimated pulmonary arterial pressure is 56.8 mmHg. PULMONARY VALVE No pulmonary valve regurgitation or stenosis. VESSELS The inferior vena cava is normal in size. PERICARDIUM No pericardial effusion. Michael Conn MD (Electronically Signed) Final Date:30 July 2017 16:40
[2017-07-30] MEDS ORDERED: CHLORHEXIDINE GLUCONATE 2 % 1 PACK (2 CLOTHS)(extra cloths) TOPICAL PRN (16:45)
--- NOTE | 2017-07-30 17:53 | PD.CARD.PN ---
Subjective Subjective Remarks Improving, pt feels at baseline, cr bumped up slightly; SR w/ frequent PACs on tele. Objective Medications Current Medications Medications (Trade) Dose Ordered Sig/Ashely Route Start Time Stop Time Status Last Admin (NS Flush) 2 ml UNSCH PRN IVF 07/29/17 04:00 (Duoneb Neb) 1 ampule Q2HR NEB PRN INH 07/29/17 08:00 (Heparin Inj) 5,000 units Q12HR SQ 07/29/17 09:00 07/30/17 08:02 Miscellaneous Information 1 Q361D XX 07/29/17 07:00 07/29/17 07:00 (Mimi-Colace) 1 tab BID PO 07/29/17 09:00 (Milk Of Magnesia Liq) 30 ml Q12HR PRN PO 07/29/17 09:00 (Senokot) 17.2 mg Q12HR PRN PO 07/29/17 09:00 (Dulcolax Supp) 10 mg DAILY PRN RECTAL 07/29/17 07:00 (Lactulose Liq) 30 ml DAILY PRN PO 07/29/17 09:00 (Ecotrin Ec) 81 mg DAILY PO 07/29/17 09:00 07/30/17 08:05 (Symbicort 160-4.5 Mcg Inh) 2 puff Q12HR INH 07/29/17 09:00 07/30/17 08:05 (Ferrous Sulfate) 325 mg BIDPC PO 07/29/17 09:00 07/30/17 08:05 (Apresoline) 50 mg BID PO 07/29/17 09:00 07/30/17 08:05 (Lopressor) 25 mg BID PO 07/29/17 09:00 07/30/17 08:05 (Flomax) 0.4 mg HS PO 07/29/17 21:00 07/29/17 20:06 (Pravachol) 40 mg HS PO 07/29/17 21:00 07/29/17 20:06 (SoluMEDROL INJ) 40 mg Q8HR IV PUSH 07/29/17 14:00 07/30/17 14:48 Ceftriaxone Sodium 1000 mg/ Sodium Chloride 100 ml @ 200 mls/hr Q24H IV 07/29/17 08:00 07/30/17 08:02 (Duoneb Neb) 1 ampule Q4HR WHILE AWAKE NEB INH 07/29/17 16:00 07/30/17 15:16 Non-Formulary Medication 1 mg BID IV 07/29/17 21:00 07/30/17 09:00 (Lunesta) 3 mg HS PRN PO 07/29/17 21:00 07/29/17 21:26 (Pepcid Inj) 10 mg Q12HR IV PUSH 07/30/17 09:00 07/30/17 08:03 (Valium) 5 mg QID PRN PO 07/30/17 09:00 07/30/17 09:19 (Proscar) 5 mg DAILY PO 07/30/17 09:00 07/30/17 09:19 Miscellaneous Information Patient in critical care unit? Ass... Q361D .XX 07/30/17 16:45 (Chlorhexidine 2% Cloth) 3 pack DAILY@04 TOPICAL 07/31/17 04:00 08/04/17 04:01 (Chlorhexidine 2% Cloth) 3 pack UNSCH PRN TOPICAL 07/30/17 16:45 08/04/17 16:37 (Bactroban Nasal 2% Oint) 1 applic BID NASAL 07/30/17 21:00 Vital Signs / I&O Vital Signs Date Time Temp Pulse Resp B/P (MAP) Pulse Ox O2 Delivery O2 Flow Rate FiO2 07/30/17 16:00 97.9 90 26 116/55 (75) 97 07/30/17 16:00 90 07/30/17 15:00 84 07/30/17 15:00 84 26 118/64 (82) 98 07/30/17 14:00 78 07/30/17 14:00 78 25 108/64 (79) 98 07/30/17 13:00 78 18 117/66 (83) 97 07/30/17 13:00 78 07/30/17 12:00 78 07/30/17 12:00 98.4 78 18 127/65 (85) 96 07/30/17 11:00 78 21 106/70 (82) 98 07/30/17 10:00 74 07/30/17 10:00 74 15 113/52 (72) 100 07/30/17 09:00 92 26 117/66 (83) 99 07/30/17 08:00 94 33 136/75 (95) 97 07/30/17 08:00 94 07/30/17 07:39 98 Nasal Cannula 3.00 07/30/17 07:00 97.9 70 14 131/58 (82) 100 07/30/17 06:00 64 07/30/17 06:00 64 15 129/68 (88) 99 07/30/17 05:00 78 16 132/75 (94) 99 07/30/17 04:00 97.6 68 16 122/67 (85) 100 07/30/17 04:00 100 35 07/30/17 04:00 68 07/30/17 03:00 72 15 128/64 (85) 100 07/30/17 02:00 62 14 124/58 (80) 99 07/30/17 02:00 68 07/30/17 01:15 100 35 07/30/17 01:00 66 13 127/63 (84) 100 07/30/17 00:00 98.2 68 17 127/58 (81) 100 07/30/17 00:00 62 07/29/17 23:00 84 18 124/65 (84) 99 07/29/17 22:00 82 23 120/55 (76) 97 07/29/17 22:00 82 07/29/17 22:00 98 35 07/29/17 21:00 96 27 129/59 (82) 97 07/29/17 20:00 95 07/29/17 20:00 97.9 94 23 131/61 (84) 96 07/29/17 19:24 97 Nasal Cannula 3.00 07/29/17 19:00 98 26 115/62 (79) 07/29/17 19:00 98 07/29/17 18:00 144 31 138/79 (98) 07/29/17 18:00 144 I/O 07/29/17 07/29/17 07/29/17 07/30/17 07/30/17 07/30/17 07:00 15:00 23:00 07:00 15:00 23:00 Intake Total 100 ml 350 ml 480 ml Output Total 400 ml Balance 100 ml -50 ml 480 ml Intake Oral 480 ml IV Total 100 ml 350 ml Output Urine Total 400 ml # Voids 3 4 # Bowel Movements 2 2 1 Physical Exam GENERAL: This is a well-nourished, well-developed patient, in no apparent distress. CARDIOVASCULAR: Regular rate and irregular rhythm without murmurs, gallops, or rubs. RESPIRATORY: Clear to auscultation. Breath sounds equal bilaterally. No wheezes , rales, or rhonchi. GASTROINTESTINAL: Abdomen soft, non-tender, nondistended. Normal, active bowel sounds MUSCULOSKELETAL: Extremities without clubbing, cyanosis, or edema. NEURO: Alert & Oriented x4 to person, place, time, situation. Moves all ext x4 Laboratory Laboratory Tests Test 07/30/17 05:45 White Blood Count 5.0 TH/MM3 Red Blood Count 2.72 MIL/MM3 Hemoglobin 8.4 GM/DL Hematocrit 26.0 % Mean Corpuscular Volume 95.6 FL Mean Corpuscular Hemoglobin 30.9 PG Mean Corpuscular Hemoglobin Concent 32.3 % Red Cell Distribution Width 21.7 % Platelet Count 214 TH/MM3 Mean Platelet Volume 7.2 FL Neutrophils (%) (Auto) 78.3 % Lymphocytes (%) (Auto) 15.3 % Monocytes (%) (Auto) 6.4 % Eosinophils (%) (Auto) 0.0 % Basophils (%) (Auto) 0.0 % Neutrophils # (Auto) 3.9 TH/MM3 Lymphocytes # (Auto) 0.8 TH/MM3 Monocytes # (Auto) 0.3 TH/MM3 Eosinophils # (Auto) 0.0 TH/MM3 Basophils # (Auto) 0.0 TH/MM3 CBC Comment AUTO DIFF Differential Comment AUTO DIFF CONFIRMED Blood Urea Nitrogen 26 MG/DL Creatinine 1.60 MG/DL Random Glucose 141 MG/DL Total Protein 5.9 GM/DL Albumin 2.6 GM/DL Calcium Level 8.1 MG/DL Alkaline Phosphatase 63 U/L Aspartate Amino Transf (AST/SGOT) 10 U/L Alanine Aminotransferase (ALT/SGPT) 13 U/L Total Bilirubin 0.4 MG/DL Sodium Level 145 MEQ/L Potassium Level 4.0 MEQ/L Chloride Level 109 MEQ/L Carbon Dioxide Level 29.7 MEQ/L Anion Gap 6 MEQ/L Estimat Glomerular Filtration Rate 41 ML/MIN Imaging Last Impressions Chest X-Ray 07/30/17 0000 Signed Impressions: Service Date/Time: Sunday, July 30, 2017 08:44 - CONCLUSION: Improvement in aeration of right lower lobe. George Sawyer MD Last 24 hours Impressions Chest X-Ray 07/30/17 0000 Signed Impressions: Service Date/Time: Sunday, July 30, 2017 08:44 - CONCLUSION: Improvement in aeration of right lower lobe. George Sawyer MD Assessment and Plan Problem List: (1) Acute on chronic systolic congestive heart failure ICD Codes: I50.23 - Acute on chronic systolic (congestive) heart failure Plan: reasonably compensated, will change to his home dose of oral bumex (2) Acute and chronic respiratory failure with hypoxia ICD Codes: J96.21 - Acute and chronic respiratory failure with hypoxia Plan: improving (3) Atrial fibrillation ICD Codes: I48.91 - Unspecified atrial fibrillation Plan: currently sinus w/ frequent PACS, daughter says he was deemed not to be a candidate for anticoagulation due to his CKD and multiple medical problems; will defer further discussion of this to Dr. Broussard. (4) Chronic kidney disease ICD Codes: N18.9 - Chronic kidney disease, unspecified Assessment and Plan If stable on his home dose of Bumex, could d/c tomorrow Michael Conn MD Jul 30, 2017 17:53
[2017-07-30] MEDS: MUPIROCIN 2% OINT 1 APPLIC/GM SYR NASAL SCH (19:32)
[2017-07-30] MEDS: PRAVASTATIN SOD 40 MG TAB PO SCH (19:32)
[2017-07-30] MEDS: TAMSULOSIN HCL 0.4 MG CAP PO SCH (19:33)
[2017-07-30] MEDS: ESZOPICLONE 3 MG TAB PO PRN (22:12)
[2017-07-31] VITALS (22 sets, daily range): BP systolic 118–136; BP diastolic 53–76; PULSE 62–98; RESP 14–33; TEMP 97.6–99.1; O2SAT 93–100
[2017-07-31] MEDS ORDERED: CHLORHEXIDINE GLUCONATE 2 % 1 PACK (2 CLOTHS)(taper/protocol) TOPICAL SCH (04:00)
[2017-07-31 05:19] LABS: AUTOMATED NEUTROPHIL # 4.9 TH/MM3 (1.8-7.7); BASOPHIL % 0.1 % (0.0-2.0); EOSINOPHIL % 0.6 % (0.0-4.0); HEMATOCRIT 26.9 % (39.0-51.0); HEMOGLOBIN 8.5 GM/DL (13.0-17.0); LYMPH % 9.7 % (9.0-44.0); LYMPHOCYTE # 0.5 TH/MM3 (1.0-4.8); MEAN CELL VOLUME 97.7 FL (80.0-100.0); MEAN CORPUSCULAR HEMOGLOBIN 30.9 PG (27.0-34.0); MEAN CORPUSCULAR HGB CONC 31.6 % (32.0-36.0); MEAN PLATELET VOLUME 7.2 FL (7.0-11.0); MONO % 3.5 % (0.0-8.0); MONOCYTE # 0.2 TH/MM3 (0-0.9); NEUT % 86.1 % (16.0-70.0); PLATELET COUNT 232 TH/MM3 (150-450); RED BLOOD COUNT 2.75 MIL/MM3 (4.50-5.90); RED CELL DISTRIBUTION WIDTH 22.5 % (11.6-17.2); WHITE BLOOD COUNT 5.6 TH/MM3 (4.0-11.0)
[2017-07-31] MEDS: BUMETANIDE 1 MG TAB PO SCH ×2 (05:35→08:46)
[2017-07-31] MEDS: methylPREDNISolone SOD SUCC 40 MG/1 ML VIAL IV PUSH SCH ×2 (05:35→15:29)
[2017-07-31 05:37] LABS: CALCIUM 8.3 MG/DL (8.5-10.1)
[2017-07-31 05:38] LABS: BICARBONATE 28.2 MEQ/L (21.0-32.0); MAGNESIUM 2.1 MG/DL (1.5-2.5)
[2017-07-31 05:41] LABS: CREATININE 1.7 MG/DL (0.60-1.30)
--- NOTE | 2017-07-31 07:07 | HHI.FF ---
Face to Face Verification Diagnosis: (1) Physical debility (2) Acute and chronic respiratory failure with hypoxia (3) Acute on chronic systolic congestive heart failure Physical Therapy Order: Evaluate and Treat, Improve ambulation, Strength and gait training Home Health Nursing Order: Medical education Signs/symptoms of disease process CHF education Nursing assessment with vital signs I have seen patient Tawnya Emanuel on 07/31/17. My clinical findings support the need for the requested home health care services because: Deconditioned w/ increased weakness Limited ability to care for self High risk of falls I certify that my clinical findings support that this patient is homebound because: Hx COPD- exertion dyspnea/weakness Unsteady gait/balance Unsafe to leave home unassisted Aydin Cho Jul 31, 2017 07:07
[2017-07-31] MEDS: RESP: ALBUTEROL 2.5 MG/IPRATROPIUM 0.5 MG NEB (SCH) INH ×3 (07:29→15:59)
[2017-07-31] MEDS: BUDESONIDE-FORMOTEROL 160/4.5 MCG INHALER INH SCH (08:38)
[2017-07-31] MEDS: FAMOTIDINE 20 MG/2 ML VIAL IV PUSH SCH (08:40)
[2017-07-31] MEDS: MUPIROCIN 2% OINT 1 APPLIC/GM SYR NASAL SCH (08:42)
[2017-07-31] MEDS: hydrALAZINE HCL 25 MG TAB PO SCH (08:43)
[2017-07-31] MEDS: ASPIRIN EC 81 MG TABEC PO SCH (08:45)
[2017-07-31] MEDS: FERROUS SULFATE 325 MG (65 MG ELEMENTAL IRON) TAB PO SCH (08:45)
[2017-07-31] MEDS: METOPROLOL TARTRATE 25 MG TAB PO SCH (08:45)
[2017-07-31] MEDS: FINASTERIDE 5 MG TAB PO SCH (08:46)
[2017-07-31] MEDS: cefTRIAXone INJ 1,000 MG in SODIUM CHLORIDE 0.9% INJ 100 ML IV SCH (08:48)
[2017-07-31] MEDS: HEPARIN SODIUM - SQ 10,000 UNITS/ML VIAL SQ SCH (08:48)
[2017-07-31] MEDS: DOCUSATE SODIUM 50 MG/SENNA 8.6 MG TAB PO SCH (08:48)
--- NOTE | 2017-07-31 09:58 | PD.CARD.PN ---
Subjective Subjective Remarks Improving, pt feels at baseline and wants to go home. Objective Medications Current Medications Medications (Trade) Dose Ordered Sig/Ashely Route Start Time Stop Time Status Last Admin (NS Flush) 2 ml UNSCH PRN IVF 07/29/17 04:00 (Duoneb Neb) 1 ampule Q2HR NEB PRN INH 07/29/17 08:00 (Heparin Inj) 5,000 units Q12HR SQ 07/29/17 09:00 07/31/17 08:48 Miscellaneous Information 1 Q361D XX 07/29/17 07:00 07/29/17 07:00 (Mimi-Colace) 1 tab BID PO 07/29/17 09:00 (Milk Of Magnesia Liq) 30 ml Q12HR PRN PO 07/29/17 09:00 (Senokot) 17.2 mg Q12HR PRN PO 07/29/17 09:00 (Dulcolax Supp) 10 mg DAILY PRN RECTAL 07/29/17 07:00 (Lactulose Liq) 30 ml DAILY PRN PO 07/29/17 09:00 (Ecotrin Ec) 81 mg DAILY PO 07/29/17 09:00 07/31/17 08:45 (Symbicort 160-4.5 Mcg Inh) 2 puff Q12HR INH 07/29/17 09:00 07/31/17 08:38 (Ferrous Sulfate) 325 mg BIDPC PO 07/29/17 09:00 07/31/17 08:45 (Apresoline) 50 mg BID PO 07/29/17 09:00 07/31/17 08:43 (Lopressor) 25 mg BID PO 07/29/17 09:00 07/31/17 08:45 (Flomax) 0.4 mg HS PO 07/29/17 21:00 07/30/17 19:33 (Pravachol) 40 mg HS PO 07/29/17 21:00 07/30/17 19:32 (SoluMEDROL INJ) 40 mg Q8HR IV PUSH 07/29/17 14:00 07/31/17 05:35 Ceftriaxone Sodium 1000 mg/ Sodium Chloride 100 ml @ 200 mls/hr Q24H IV 07/29/17 08:00 07/31/17 08:48 (Duoneb Neb) 1 ampule Q4HR WHILE AWAKE NEB INH 07/29/17 16:00 07/31/17 07:29 (Lunesta) 3 mg HS PRN PO 07/29/17 21:00 07/30/17 22:12 (Pepcid Inj) 10 mg Q12HR IV PUSH 07/30/17 09:00 07/31/17 08:40 (Valium) 5 mg QID PRN PO 07/30/17 09:00 07/30/17 09:19 (Proscar) 5 mg DAILY PO 07/30/17 09:00 07/31/17 08:46 Miscellaneous Information Patient in critical care unit? Ass... Q361D .XX 07/30/17 16:45 07/30/17 16:45 (Chlorhexidine 2% Cloth) 3 pack DAILY@04 TOPICAL 07/31/17 04:00 08/04/17 04:01 07/31/17 04:00 (Chlorhexidine 2% Cloth) 3 pack UNSCH PRN TOPICAL 07/30/17 16:45 08/04/17 16:37 (Bactroban Nasal 2% Oint) 1 applic BID NASAL 07/30/17 21:00 07/31/17 08:42 (Bumetanide) 1 mg BID@18 PO 07/31/17 06:00 07/31/17 08:46 Vital Signs / I&O Vital Signs Date Time Temp Pulse Resp B/P (MAP) Pulse Ox O2 Delivery O2 Flow Rate FiO2 07/31/17 07:29 93 Nasal Cannula 2.00 07/31/17 06:00 62 14 135/63 (87) 100 07/31/17 06:00 62 07/31/17 05:00 64 16 124/63 (83) 100 07/31/17 04:00 97.9 66 16 132/69 (90) 99 07/31/17 04:00 72 07/31/17 03:39 98 35 07/31/17 03:00 70 14 118/62 (80) 97 07/31/17 02:00 70 07/31/17 02:00 70 19 124/63 (83) 100 07/31/17 01:27 95 35 07/31/17 01:00 74 30 125/76 (92) 98 07/31/17 00:00 74 07/31/17 00:00 97.6 74 22 119/62 (81) 99 07/30/17 23:00 74 19 99 07/30/17 22:30 98 35 07/30/17 22:00 88 24 96 07/30/17 22:00 88 07/30/17 21:00 90 24 96 07/30/17 20:00 98.0 88 26 124/56 (78) 99 07/30/17 20:00 88 07/30/17 19:50 96 Nasal Cannula 2.00 07/30/17 19:00 84 31 96 07/30/17 18:00 88 07/30/17 18:00 80 20 124/56 (78) 97 07/30/17 17:00 98 27 100/67 (78) 94 07/30/17 16:00 97.9 90 26 116/55 (75) 97 07/30/17 16:00 90 07/30/17 15:00 84 07/30/17 15:00 84 26 118/64 (82) 98 07/30/17 14:00 78 07/30/17 14:00 78 25 108/64 (79) 98 07/30/17 13:00 78 18 117/66 (83) 97 07/30/17 13:00 78 07/30/17 12:00 78 07/30/17 12:00 98.4 78 18 127/65 (85) 96 07/30/17 11:00 78 21 106/70 (82) 98 07/30/17 10:00 74 07/30/17 10:00 74 15 113/52 (72) 100 I/O 07/30/17 07/30/17 07/30/17 07/31/17 07/31/17 07/31/17 07:00 15:00 23:00 07:00 15:00 23:00 Intake Total 480 ml 100 ml 1200 ml 240 ml Output Total 500 ml Balance 480 ml 100 ml 1200 ml -260 ml Intake Oral 480 ml 1200 ml 240 ml IV Total 100 ml Output Urine Total 500 ml # Voids 4 3 # Bowel Movements 1 0 0 Physical Exam GENERAL: This is a well-nourished, well-developed patient, in no apparent distress. CARDIOVASCULAR: Regular rate and irregular rhythm without murmurs, gallops, or rubs. RESPIRATORY: Clear to auscultation. Breath sounds equal bilaterally. No wheezes , rales, or rhonchi. GASTROINTESTINAL: Abdomen soft, non-tender, nondistended. Normal, active bowel sounds MUSCULOSKELETAL: Extremities without clubbing, cyanosis, or edema. NEURO: Alert & Oriented x4 to person, place, time, situation. Moves all ext x4 Laboratory Laboratory Tests Test 07/31/17 04:25 White Blood Count 5.6 TH/MM3 Red Blood Count 2.75 MIL/MM3 Hemoglobin 8.5 GM/DL Hematocrit 26.9 % Mean Corpuscular Volume 97.7 FL Mean Corpuscular Hemoglobin 30.9 PG Mean Corpuscular Hemoglobin Concent 31.6 % Red Cell Distribution Width 22.5 % Platelet Count 232 TH/MM3 Mean Platelet Volume 7.2 FL Neutrophils (%) (Auto) 86.1 % Lymphocytes (%) (Auto) 9.7 % Monocytes (%) (Auto) 3.5 % Eosinophils (%) (Auto) 0.6 % Basophils (%) (Auto) 0.1 % Neutrophils # (Auto) 4.9 TH/MM3 Lymphocytes # (Auto) 0.5 TH/MM3 Monocytes # (Auto) 0.2 TH/MM3 Eosinophils # (Auto) 0.0 TH/MM3 Basophils # (Auto) 0.0 TH/MM3 CBC Comment DIFF FINAL Differential Comment Blood Urea Nitrogen 34 MG/DL Creatinine 1.70 MG/DL Random Glucose 153 MG/DL Calcium Level 8.3 MG/DL Magnesium Level 2.1 MG/DL Sodium Level 143 MEQ/L Potassium Level 3.7 MEQ/L Chloride Level 107 MEQ/L Carbon Dioxide Level 28.2 MEQ/L Anion Gap 8 MEQ/L Estimat Glomerular Filtration Rate 38 ML/MIN Imaging Last Impressions Chest X-Ray 07/30/17 0000 Signed Impressions: Service Date/Time: Sunday, July 30, 2017 08:44 - CONCLUSION: Improvement in aeration of right lower lobe. George Sawyer MD Assessment and Plan Problem List: (1) Acute on chronic systolic congestive heart failure ICD Codes: I50.23 - Acute on chronic systolic (congestive) heart failure Plan: reasonably compensated, on home dose of oral bumex (2) Acute and chronic respiratory failure with hypoxia ICD Codes: J96.21 - Acute and chronic respiratory failure with hypoxia Plan: improving (3) Atrial fibrillation ICD Codes: I48.91 - Unspecified atrial fibrillation Plan: currently sinus w/ frequent PACS, daughter says he was deemed not to be a candidate for anticoagulation due to his CKD and multiple medical problems; will defer further discussion of this to Dr. Broussard. (4) Chronic kidney disease ICD Codes: N18.9 - Chronic kidney disease, unspecified Assessment and Plan Ok to d/c home from cardiac standpoint to f/u with Michael Scanlon MD Jul 31, 2017 09:58
[2017-07-31] MEDS: DIAZEPAM 5 MG TAB PO PRN (10:47)
--- NOTE | 2017-07-31 11:37 | HHI.DCPOC ---
Discharge Care Plan Diagnosis: (1) Acute on chronic systolic congestive heart failure (2) Acute and chronic respiratory failure with hypoxia Goals to Promote Your Health * To prevent worsening of your condition and complications * To maintain your health at the optimal level Directions to Meet Your Goals Take your medications as prescribed Follow your dietary instruction Follow activity as directed Keep your appointments as scheduled Take your immunizations and boosters as scheduled If your symptoms worsen call your PCP, if no PCP go to Urgent Care Center or Emergency Room Smoking is Dangerous to Your Health. Avoid second hand smoke Call the 24-hour hour crisis hotline for domestic abuse at Aydin Cho Jul 31, 2017 11:37
[2017-07-31] MEDS ORDERED: DOXY100C PO (11:42)
[2017-07-31] MEDS ORDERED: MEDR4PAK PO (11:42)
--- NOTE | 2017-07-31 14:40 | HHI.DS ---
Discharge Summary Admission Date Jul 29, 2017 at 05:48 Discharge Date: Jul 31, 2017 Admitting Diagnosis chf, copd, LLL infiltrate (1) Acute and chronic respiratory failure with hypoxia ICD Code: J96.21 - Acute and chronic respiratory failure with hypoxia Diagnosis: Principal (2) Acute on chronic systolic congestive heart failure ICD Code: I50.23 - Acute on chronic systolic (congestive) heart failure Diagnosis: Principal (3) Chronic obstructive pulmonary disease ICD Code: J44.9 - Chronic obstructive pulmonary disease, unspecified Diagnosis: Principal (4) Abnormal chest x-ray ICD Code: R93.8 - Abnormal findings on diagnostic imaging of other specified body structures Diagnosis: Principal (5) Diarrhea ICD Code: R19.7 - Diarrhea, unspecified Diagnosis: Principal (6) History of Clostridium difficile infection ICD Code: Z86.19 - Personal history of other infectious and parasitic diseases Diagnosis: Secondary (7) Chronic kidney disease ICD Code: N18.9 - Chronic kidney disease, unspecified Diagnosis: Secondary (8) Atrial fibrillation ICD Code: I48.91 - Unspecified atrial fibrillation Diagnosis: Secondary Procedures 07/30/17:5%, global left ventricular dysfunction, moderate mitral valve regurgitation, mild thickening of the aortic valve leaflets, mild tricuspid valve regurgitation, pulmonary arterial pressure 56 Brief History - From Admission 86 year-old male who is a no code DNR who presented from local nursing facility [facility] rehabilitation for evaluation of hypoxia and shortness of breath. Patient with rather significant medical history of chronic hypoxic respiratory failure, chronic systolic congestive heart failure, chronic obstructive pulmonary disease, sleep apnea, hypertension , hyperlipidemia, coronary artery disease, non-Hodgkin lymphoma, laryngeal neoplasm, atrial fibrillation, chronic kidney disease who was recently hospitalized at [facility] to be for recurrent pneumonia and Clostridium difficile infection. Patient was discharged with respiratory failure on BiPAP to [facility]. Apparently the [facility] stated that he was not tolerating BiPAP been removed and he decreased to 70% O2 saturations. He is placed on 15 L nonrebreather and transferred to the hospital for further evaluation. Workup in emergency department initially indicated that he has chronic respiratory failure. Chest x-ray was rather inconclusive of whether it is atelectasis, scarring, fluid, pneumonia, aspiration. Because the patient was in respiratory failure he was started on BiPAP for respiratory support. Patient tolerated BiPAP fine in emergency department in O2 saturations improved. Information was taken from power of compliance attorney at bedside Reshma Hager. She indicates that he has had recent treatment for Clostridium difficile and still has diarrhea at this time. She thinks he may still be getting treatment in the [facility]. Patient was admitted to the ICU in critical care management. [place] DNR was presented at time of transfer from ER to ICU. CBC/BMP: 07/31/17 0425 07/31/17 0425 Significant Findings Laboratory Tests Test 07/29/17 04:00 07/29/17 06:21 07/29/17 13:00 07/29/17 13:20 Red Blood Count 3.01 MIL/MM3 (4.50-5.90) Hemoglobin 9.1 GM/DL (13.0-17.0) Hematocrit 28.9 % (39.0-51.0) Mean Corpuscular Hemoglobin Concent 31.5 % (32.0-36.0) Red Cell Distribution Width 22.5 % (11.6-17.2) Mean Platelet Volume 6.9 FL (7.0-11.0) Neutrophils (%) (Auto) 76.4 % (16.0-70.0) Monocytes (%) (Auto) 8.4 % (0.0-8.0) Activated Partial Thromboplast Time 21.2 SEC (24.3-30.1) Blood Urea Nitrogen 20 MG/DL (7-18) Creatinine 1.40 MG/DL (0.60-1.30) Random Glucose 118 MG/DL (74-106) Total Protein 6.3 GM/DL (6.4-8.2) Albumin 2.9 GM/DL (3.4-5.0) Calcium Level 8.1 MG/DL (8.5-10.1) Aspartate Amino Transf (AST/SGOT) 11 U/L (15-37) Chloride Level 109 MEQ/L (98-107) Estimat Glomerular Filtration Rate 48 ML/MIN (>89) Total Creatine Kinase 14 U/L (39-308) B-Type Natriuretic Peptide 4598 PG/ML (0-100) Urine Protein 100 mg/dL (NEG-TRACE) Test 07/30/17 05:45 07/31/17 04:25 Red Blood Count 2.72 MIL/MM3 (4.50-5.90) 2.75 MIL/MM3 (4.50-5.90) Hemoglobin 8.4 GM/DL (13.0-17.0) 8.5 GM/DL (13.0-17.0) Hematocrit 26.0 % (39.0-51.0) 26.9 % (39.0-51.0) Red Cell Distribution Width 21.7 % (11.6-17.2) 22.5 % (11.6-17.2) Neutrophils (%) (Auto) 78.3 % (16.0-70.0) 86.1 % (16.0-70.0) Lymphocytes # (Auto) 0.8 TH/MM3 (1.0-4.8) 0.5 TH/MM3 (1.0-4.8) Blood Urea Nitrogen 26 MG/DL (7-18) 34 MG/DL (7-18) Creatinine 1.60 MG/DL (0.60-1.30) 1.70 MG/DL (0.60-1.30) Random Glucose 141 MG/DL (74-106) 153 MG/DL (74-106) Total Protein 5.9 GM/DL (6.4-8.2) Albumin 2.6 GM/DL (3.4-5.0) Calcium Level 8.1 MG/DL (8.5-10.1) 8.3 MG/DL (8.5-10.1) Aspartate Amino Transf (AST/SGOT) 10 U/L (15-37) Chloride Level 109 MEQ/L (98-107) Estimat Glomerular Filtration Rate 41 ML/MIN (>89) 38 ML/MIN (>89) Mean Corpuscular Hemoglobin Concent 31.6 % (32.0-36.0) Imaging Last Impressions Chest X-Ray 07/30/17 0000 Signed Impressions: Service Date/Time: Sunday, July 30, 2017 08:44 - CONCLUSION: Improvement in aeration of right lower lobe. George Sawyer MD Hospital Course 86 year-old male who was admitted to ICU management on 07/29/17 because of acute hypoxic/hypercapnic respiratory failure, acute on chronic systolic congestive heart failure, [place] DNR. Patient was started on BiPAP management. Patient was continued on antibiotics, Solu-Medrol, IV Bumex with significant improvement of his clinical condition and was successfully weaned from BiPAP within 24 hours. Chest x-rays were done on presentation which did show positive fluid balance. Left lower lung airspace disease which may reflect atelectasis, aspiration or pneumonia. Follow-up chest x-ray was performed which did show significant irritation improvement of the left lower lung. Operations Advisor was consulted for recommendations during the patient's stay in the hospital. Operations Advisor did follow the patient through his stay in the hospital is clear for discharge this time. Patient responded to treatment rather well and has successfully weaned down to 2 L nasal cannula which he is on an outpatient setting. Physical therapy evaluated patient is still recommending the patient be rehabilitation. However patient is refusing any go to rehabilitation. He wants to go home with home health care is discussed with the patient on multiple times that the patient would benefit better from going to a rehabilitation facility or he will likely present back to the up in the hospital if he does not take care of himself appropriately. Patient does not care of this time. He only wants to go home and is refusing to go to rehabilitation facility. Case management was consulted and we have made arrangements for home health care, physical therapy, transportation. Patient is clinically stable for discharge, patient prefers to go home. Patient needs a follow-up with primary medical doctor in one to 2 days. Pt Condition on Discharge: Fair Discharge Disposition: Disch w/ Home Health Serv Discharge Time: > 30 minutes Discharge Instructions DIET: Follow Instructions for: Heart Healthy Diet Fluid Restrictions: 1500 cc Activities you can perform: Regular-No Restrictions Activities to Avoid: Driving for 24 hrs Follow up Referrals: Cardiology - 2 Weeks PCP Follow-up - 1 Week New Medications: Methylprednisolone Dosepak (Medrol Dosepak) 4 Mg Dspk 4 MG PO DIRECTED, #1 DSPK 0 Refills Per Pharmacist direction Continued Medications: Acetaminophen-Codeine (Acetaminophen-Codeine) 300-15 mg Tab 1 TAB PO Q6H PRN for PAIN, TAB 0 Refills Albuterol Neb (Albuterol Neb) 2.5 Mg/3 Ml Neb 2.5 MG NEB QID NEB for Breathing Treatment, #60 NEBULE [address] (Aspirin EC) 81 Mg Tabdr 81 MG PO DAILY, TAB 0 Refills Budesonide-Formoterol Inh (Symbicort Inh) 160-4.5 Mcg/Act Aero 2 PUFF INH Q12HR, #1 INHALER 0 Refills Bumetanide (Bumetanide) 1 Mg Tab 1 MG PO BID, #60 TAB 0 Refills Diazepam (Diazepam) 5 Mg Tab 5 MG PO QID PRN for ANXIETY, TAB 0 Refills Doxycycline Hyclate (Doxycycline Hyclate) 100 Mg Cap 100 MG PO BID for Infection for 7 Days, #14 CAP 0 Refills (This prescription has been renewed) Eszopiclone (Lunesta) 2 Mg Tab 3 MG PO HS PRN for INSOMNIA, TAB 0 Refills Ferrous Sulfate (Ferrous Sulfate) 325 Mg (65 Mg Iron) Tablet 325 MG PO BIDPC for Nutritional Supplement, #60 TAB 0 Refills Finasteride (Finasteride) 5 Mg Tab 5 MG PO DAILY for Manage Prostate Problems, #30 TAB 0 Refills Do not crush. Hydralazine HCl (Hydralazine HCl) 25 Mg Tablet 50 MG PO BID for Blood Pressure Management, #60 TAB 0 Refills Magnesium Oxide (Magnesium Oxide) 500 Mg Tab 500 MG PO DAILY, TAB 0 Refills Metoprolol Tartrate (Metoprolol Tartrate) 25 Mg Tab 25 MG PO BID, #60 TAB 0 Refills Pantoprazole (Pantoprazole) 40 Mg Tab 40 MG PO BID for Reflux, #30 TAB 0 Refills Saccharomyces Boulardii (Probiotic) 250 Mg Cap 250 MG PO BID for Nutritional Supplement, CAP 0 Refills Simvastatin (Simvastatin) 20 Mg Tab 20 MG PO HS for Cholesterol Management, #30 TAB 0 Refills Tamsulosin (Tamsulosin) 0.4 Mg Cap 0.4 MG PO HS for Manage Prostate Problems, #30 CAP 0 Refills Discontinued Medications: Cetirizine (Cetirizine) 10 Mg Tab 10 MG PO BID for Allergies, TAB 0 Refills Cholestyramine (Questran) 4 Gm/Dose Powd 4 GM PO QID for Dyslipidemia, #1 CAN 0 Refills 1 level scoopful of powder contains 4 grams of cholestyramine. Docusate Sodium (Docusate Sodium) 100 Mg Cap 100 MG PO BID for Prevent Constipation, #60 CAP 0 Refills Losartan (Losartan) 25 Mg Tab 12.5 MG PO DAILY for Blood Pressure Management, #15 TAB 0 Refills Methylprednisolone (Medrol) 4 Mg Tab 4 MG PO DAILY, TAB 0 Refills Aydin Cho Jul 31, 2017 14:40
[2017-07-31] MEDS ORDERED: SODIUM CHLORIDE 0.9% FLUSH 10 ML FLUSH IVF PRN (18:00)
== END 2017-07-31 18:40 | disposition home health service (06) | DRG 291 ==
LOC: PHED 03:45 → PHEDA 05:48 → PHICU 07:35
PROVIDERS: ADMIT Hospitalist; ATTEND Hospitalist
PROC: 5A09457 Assistance with Respiratory Ventilation, 24-96 Consecutive Hours, Continuous Positive Airway Pressure (ICD-10-PCS; principal; 2017-07-29)
DX: I13.0 Hypertensive heart and chronic kidney disease with heart failure and stage 1 through stage 4 chronic kidney disease, or unspecified chronic kidney disease (principal); I50.23 Acute on chronic systolic (congestive) heart failure; J96.21 Acute and chronic respiratory failure with hypoxia; I42.9 Cardiomyopathy, unspecified; I48.91 Unspecified atrial fibrillation; J44.9 Chronic obstructive pulmonary disease, unspecified; N18.9 Chronic kidney disease, unspecified; R19.7 Diarrhea, unspecified; Z66 Do not resuscitate; I25.10 Atherosclerotic heart disease of native coronary artery without angina pectoris; E78.5 Hyperlipidemia, unspecified; D50.9 Iron deficiency anemia, unspecified; G47.30 Sleep apnea, unspecified; Z85.21 Personal history of malignant neoplasm of larynx; Z85.72 Personal history of non-Hodgkin lymphomas
CPT/HCPCS: 71045; 80048; 80053; 81001; 82550; 83605; 83735; 83880; 84155; 84484; 85025; 85610; 85730; 87040; 87425; 87449; 87493; 87506; 87641; 93005; 93306; 94002; 94003; 94640; 94664; 96365; 96375; J0696; J1642; J1644; J2543; J2920; J2930; J3370; J7050